=== PATIENT | female | born 1990 | race Asian ===

== ENCOUNTER 2017-06-21 06:15 | Outpatient (CLI) | payer OTHER | END 2017-06-21 06:16 | disposition critical access hospital (66) | LOC: EMS 06:15 | PROVIDERS: ATTEND Surgery | DX: R22.0 Localized swelling, mass and lump, head (principal); V48.5XXA Car driver injured in noncollision transport accident in traffic accident, initial encounter; Y92.410 Unspecified street and highway as the place of occurrence of the external cause | CPT/HCPCS: A0425; A0429 ==

== ENCOUNTER 2017-06-21 06:41 | Emergency (ER) | payer OTHER ==
[2017-06-21] MEDS ORDERED: ACETAMINOPHEN 325 MG TABLET PO STA (07:30)
[2017-06-21] MEDS ORDERED: CYCLOBENZAPRINE 10 MG TABLET PO STA (07:30)
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
[2017-06-21] MEDS ORDERED: ACETAMINOPHEN 325 MG TABLET PO ONE (07:44)
[2017-06-21] MEDS ORDERED: CYCLOBENZAPRINE 10 MG TABLET PO ONE (07:44)
--- NOTE | 2017-06-21 08:47 | CT Preliminary Report ---
Exam: CT HEAD W/O IMPRESSION: 1. Prominent right lateral frontal soft tissue hematoma. 2. No evidence for intracranial hemorrhage or depressed calvarial fracture. [facility] SITE ID: [id number]
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
--- NOTE | 2017-06-21 08:50 | CT Preliminary Report ---
Exam: CT CERVICAL SPINE W/O IMPRESSION: No fracture evident. [facility] SITE ID: [id number]
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
[2017-06-21 09:51] VITALS: BP 114/82
== END 2017-06-21 09:51 | disposition home or self-care (01) ==
LOC: EDUNIT# → ED 06:41
DX: S09.90XA Unspecified injury of head, initial encounter (principal); S19.9XXA Unspecified injury of neck, initial encounter; S00.01XA Abrasion of scalp, initial encounter; S00.03XA Contusion of scalp, initial encounter; V48.5XXA Car driver injured in noncollision transport accident in traffic accident, initial encounter
CPT/HCPCS: 70450; 72125; 99283; A9270

== ENCOUNTER 2020-10-19 14:56 | Emergency (ER) | payer BC, OTHER ==
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
[2020-10-19 16:26] VITALS: BP 124/78
--- OUTSIDE RECORDS SUMMARY | 2020-10-21 03:17 | EXTERNAL MEDICAL SUMMARY RPT | Continuity of Care Document ---
:1990 Demographics Phone Unavailable Preferred Language Unknown Marital Status Unknown Rastafari Affiliation Unknown Race Unknown Ethnic Group Unknown Author Organization [facility] Address [address] [phone] Phone Care Team Providers Name Role Phone MD Unavailable Unavailable Problems date description facility 20201019 Details of drug misuse behavior All 20201019 H/O: Disorder All 20201019 Other specified personal risk factors, not elsewhere All classified 20201019 Tobacco smoking status NHIS All 20201019 Tobacco use and exposure All 20201019 Unspecified personal history presenting hazards to health All Medications date description facility 20201019 ETONOGESTREL IMPL All 20201019 ETONOGESTREL IMPL All Procedures date description facility 20201019 Med Administration (PO-SL-IN-AL) All date description facility 20201019 Ondansetron 4 mg All Vital Signs date measurement value source 20201019 BMI 25.29 kg/m2 20201019 BP_diastolic 76 mm[Hg] 20201019 BP_systolic 118 mm[Hg] 20201019 heart_rate 113 /min 20201019 height_metric 160.66 cm 20201019 height_standard 63.25 in 20201019 respiration_rate 12 /min 20201019 temperature_metric 36.61 C 20201019 temperature_standard 97.9 F 20201019 weight_metric 65.05 kg 20201019 weight_standard 143.4 lb Social History date description facility [id number]
--- OUTSIDE RECORDS SUMMARY | 2020-10-21 03:17 | EXTERNAL MEDICAL SUMMARY RPT | Continuity of Care Document ---
:1990 Demographics Phone Unavailable Preferred Language Unknown Marital Status Unknown Mandaeism Affiliation Unknown Race Unknown Ethnic Group Unknown Author Organization [facility] Address [address] [phone] Phone Care Team Providers Name Role Phone [...] Procedures date description facility 20201019 Med Administration (PO-SL-IN-ME) All date description facility 20201019 Ondansetron 4 [...] 143.4 lb Social History date description facility [id number]
== END 2020-10-19 16:36 | disposition home or self-care (01) ==
LOC: ED 14:56
DX: S06.0X0A Concussion without loss of consciousness, initial encounter (principal); S16.1XXA Strain of muscle, fascia and tendon at neck level, initial encounter; V43.52XA Car driver injured in collision with other type car in traffic accident, initial encounter; Y92.410 Unspecified street and highway as the place of occurrence of the external cause
CPT/HCPCS: 99282; 99284

== ENCOUNTER 2021-10-31 06:56 | Emergency (ER) | payer SELFPAY ==
--- NOTE | 2021-10-31 07:39 | ED Physician Documentation ---
PD HPI URI - Stated complaint Stated Complaint: SOA/COUGH/RUNNY NOSE - Chief complaint Chief Complaint: Resp - History obtained from History obtained from: Patient - History of Present Illness Timing - onset: How many weeks ago (2-3) Timing duration: Weeks (2-3) Timing details: Abrupt onset (she had onset of cough and congestion with some feverish feeling almost 3 weeks ago. Has persisted with cough and dyspnea, wheezing with activity, and now with purulent nasal drainage, sinus pressure and malaise. Had done COVID home test 3 times along the course, all negative.), Still present Associated symptoms: Fever (at onset of illness and again the past 3 days.), Nasal congestion, Rhinorrhea, Sinus pain (more recently), Dry cough. No: Sore throat Contributing factors: Sick contact (her daughter was sick with URI few days prior to patient symptoms onset, but daughter was better after just few days.) Improves by: Rest Worsened by: Activity (dyspnea, increased cough, and wheezing with working (house cleaning). Has been out of work the past 3 days.) Similar symptoms before: Has not had sx before Recently seen: Not recently seen Review of Systems Constitutional: reports: Fever, Myalgias Nose: reports: Rhinorrhea / runny nose, Congestion, Sinus pressure / pain Throat: denies: Sore throat Cardiac: denies: Chest pain / pressure Respiratory: reports: Dyspnea, Cough, Wheezing GI: reports: Nausea (mild in mornings). denies: Abdominal Pain, Vomiting, Diarrhea Neurologic: reports: Generalized weakness. denies: Altered mental status, Headache PD PAST MEDICAL HISTORY - Past Medical History Cardiovascular: None Respiratory: None Endocrine/Autoimmune: None GI: Ulcers - Past Surgical History Past Surgical History: Yes - Present Medications Home Medications: Ambulatory Orders Medication Instructions Recorded Confirmed Albuterol Sulf [Ventolin Hfa 2 - 3 puffs INH QID 10 Days #1 10/31/21 Inhaler] inhaler Benzonatate [Tessalon] 100 mg PO TID PRN #20 cap 10/31/21 Doxycycline Hyclate 100 mg PO BID 7 Days #14 cap 10/31/21 dexAMETHasone [Decadron] 4 mg PO DAILY #5 tablet 10/31/21 - Allergies Allergies/Adverse Reactions: Allergies Allergy/AdvReac Type Severity Reaction Status Date / Time Penicillins Allergy Intermediate Edema Verified 10/31/21 07:06 - Social History Does the pt smoke?: No Smoking Status: Never smoker Does the pt drink ETOH?: Yes Does the pt have substance abuse?: No - Immunizations Immunizations are current?: Yes - POLST Patient has POLST: No PD ED PE NORMAL - Vitals Vital signs reviewed: Yes (sats and HR good) - General General: Alert and oriented X 3, No acute distress, Well developed/nourished - HEENT HEENT: Ears normal, Moist mucous membranes, Pharynx benign - Neck Neck: Supple, no meningeal sign, No adenopathy - Cardiac Cardiac: RRR, No murmur - Respiratory Respiratory: Clear bilaterally - Derm Derm: Normal color, Warm and dry - Neuro Neuro: Alert and oriented X 3, No motor deficit, Normal speech Results - Vitals Vitals: Vital Signs - 24 hr 10/31/21 10/31/21 10/31/21 07:00 08:25 08:49 Temperature 37.0 C 37 C Heart Rate 88 92 92 Respiratory 18 18 18 Rate Blood Pressure 144/90 H 147/98 H O2 Saturation 100 100 Oxygen O2 Source Room air PD MEDICAL DECISION MAKING - ED course Complexity details: considered differential (sounds like URI with now secondary sinusitis. ), d/w patient Departure - Departure Disposition: 01 Home, Self Care Clinical Impression: Upper respiratory infection Qualifiers: URI type: unspecified URI Qualified Code(s): J06.9 - Acute upper respiratory infection, unspecified Acute sinusitis Qualifiers: Sinusitis location: unspecified location Recurrence: non-recurrent Qualified Code(s): J01.90 - Acute sinusitis, unspecified Condition: Stable Record reviewed to determine appropriate education?: Yes Instructions: ED Sinusitis Abx Tx Prescriptions: dexAMETHasone [Decadron] 4 mg PO DAILY #5 tablet Doxycycline Hyclate 100 mg PO BID 7 Days #14 cap Benzonatate [Tessalon] 100 mg PO TID PRN #20 cap PRN Reason: Cough Albuterol Sulf [Ventolin Hfa Inhaler] 2 - 3 puffs INH QID 10 Days #1 inhaler Comments: Stay well-hydrated. Use the albuterol inhaler 2 to 3 puffs 4 times a day for the next several days to week to help with breathing. Decadron steroid daily for the next 5 days to help with bronchial and sinus inflammation. This will also help you with your breathing and decreased cough. Add benzonatate if needed for cough. Fher-kej-upiygbt cough medicines are okay as well. The underlying symptoms of cough and congestion likely are viral but it does sound like there could be a bacterial component to your sinus symptoms. We can add doxycycline antibiotic twice daily as directed. Take that with food. Recheck if not improving well over the next several days and resolved by 3 to 5 days. Off work today and possibly tomorrow while improving. I transmitted your prescriptions to [facility] pharmacy in [place]. Forms: Activity restrictions Discharge Date/Time: 10/31/21 08:49
[2021-10-31] MEDS ORDERED: DOXYCYCLINE 100 MG TABLET PO STA (08:09)
[2021-10-31] MEDS ORDERED: ALBUTEROL 1 PUFF INH STA (08:09)
[2021-10-31] MEDS ORDERED: DEXAMETHASONE 10 MG/ML VIAL PO STA (08:09)
[2021-10-31] MEDS ORDERED: BENZONATATE 100 MG CAPSULE PO STA (08:09)
[2021-10-31] MEDS ORDERED: CHERRY SYRUP 10 ML UDC PO ONE (08:09)
[2021-10-31 08:51] VITALS: BP 147/98
== END 2021-10-31 08:49 | disposition home or self-care (01) ==
LOC: ED 06:56
DX: J06.9 Acute upper respiratory infection, unspecified (principal); J01.90 Acute sinusitis, unspecified
CPT/HCPCS: 94640; 94664; 99283; A9270